=== PATIENT | male | born 1980 | race Hispanic/Latino ===

== ENCOUNTER 2016-12-01 15:28 | Emergency (ER) | payer MEDICARE, MEDICAID ==
[~2016-12-01 15:28] MED LIST: ONDA4TAB9 PO; PHN100C PO
[2016-12-01 15:37] VITALS: BP 108/74; PULSE 67; RESP 16; O2SAT 98
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
[2016-12-01] MEDS ORDERED: Trimethoprim-Sulfa 160 mg-800 mg Tablet PO ONE (15:50)
[2016-12-01] MEDS ORDERED: TdaP Vaccine 0.5 mL Inj IM ONE (15:50)
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
[2016-12-01] MEDS ORDERED: SULF1TAB7 PO (16:22)
== END 2016-12-01 16:22 ==
LOC: EDBD → SED 15:28 → MERGE 15:28 → SED 16:22
DX: S81.812A Laceration without foreign body, left lower leg, initial encounter (principal); X99.9XXA Assault by unspecified sharp object, initial encounter; Y93.89 Activity, other specified; Y92.9 Unspecified place or not applicable; Y99.8 Other external cause status; L03.116 Cellulitis of left lower limb; R50.9 Fever, unspecified; Z23 Encounter for immunization

== ENCOUNTER 2016-12-17 08:38 | Emergency (ER) | payer MEDICARE, MEDICAID ==
[~2016-12-17] VITALS: Ht 167.6 cm; Wt 76.8 kg
[~2016-12-17 08:38] MED LIST changes: +SULF1TAB7 PO
[2016-12-17 08:40] VITALS: BP 107/54; PULSE 79; RESP 16; O2SAT 98
[2016-12-17] MEDS ORDERED: SULF1TAB7 PO (09:05)
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
[2016-12-17 09:29] LABS: BASOPHILS % (AUTO) 0.7 % (0-3); EOSINOPHILS % (AUTO) 3.9 % (0-5); MONOCYTES % (AUTO) 9.5 % (4-12); Mean Corpuscular Hemoglobin 29.4 pg (27.0-35.0); Mean Corpuscular Volume 90.3 fL (81-100); NEUTROPHILS % (AUTO) 49.3 % (40-74); Platelet Count 285 bil/L (150-400)
[2016-12-17 10:14] LABS: ERYTHROCYTE SEDIMENTATION RATE 1 mm/hr (0-15)
--- NOTE | 2016-12-17 10:51 | DRSVH ---
PROCEDURE: X-RAY RIGHT FOOT COMPLETE, MINIMUM THREE VIEWS ([id number]) INDICATIONS: pain TECHNIQUE: 3 views of the foot were acquired. COMPARISON: [facility], , FOOT COMP MIN 3VW (RT), 02/19/2011, 18:45. FINDINGS: Bones: No fractures or dislocations. No suspicious bony lesions. Soft tissues: No tibiotalar joint effusion. Achilles tendon appears normal. IMPRESSION: No visualized acute fracture or dislocation. However, if clinical concern and/or pain pe rsist, short interval imaging followup in 7-10 days is recommended, as occult injury cannot be defini tively excluded. Dictated by: Arin Ayala M.D. on 12/17/2016 at 10:48 Approved by: Arin Ayala M.D. on 12/17/2016 at 10:50
[2016-12-17] MEDS ORDERED: Phenytoin 100 mg ER Capsule PO ONE (11:00)
[2016-12-17 11:18] VITALS: BP 121/53; PULSE 89; RESP 18; O2SAT 97
[2016-12-17 11:43] VITALS: BP 107/58; PULSE 76; RESP 24; O2SAT 98
== END 2016-12-17 11:57 | disposition home or self-care (01) ==
LOC: EDBD 08:38 → EDUNIT# 08:38 → SED 08:38
DX: R56.9 Unspecified convulsions (principal); R79.1 Abnormal coagulation profile; Z91.14 Patient's other noncompliance with medication regimen; J45.909 Unspecified asthma, uncomplicated; Z88.6 Allergy status to analgesic agent; Z88.8 Allergy status to other drugs, medicaments and biological substances; Z59.0 Homelessness

== ENCOUNTER 2017-01-08 21:19 | Emergency (ER) | payer MEDICARE, MEDICAID ==
[2017-01-08 21:25] VITALS: PULSE 97; RESP 22; O2SAT 100
[2017-01-08] MEDS ORDERED: HYDROmorphone 1 mg/mL Inj IVPUSH PRN (21:25)
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
[2017-01-08 21:35] VITALS: BP 120/74
--- NOTE | 2017-01-08 21:49 | DRSVH ---
PROCEDURE: X-RAY CHEST ONE VIEW, PORTABLE ([id number]) INDICATIONS: CP TECHNIQUE: One view of the chest was acquired. COMPARISON: None. FINDINGS: Surgical changes and devices: None. Lungs and pleura: No pleural effusions or pneumothorax. Lungs are clear. Mediastinum: Mediastinal contours appear normal. Heart size is normal. Bones and chest wall: No suspicious bony lesions. Overlying soft tissues appear unremarkable. IMPRESSION: No acute disease Dictated by: Kobe Yo M.D. on 01/08/2017 at 21:47 Approved by: Kobe Yo M.D. on 01/08/2017 at 21:48
[2017-01-08 21:54] LABS: BASOPHILS % (AUTO) 0.5 % (0-3); EOSINOPHILS % (AUTO) 2.1 % (0-5); MONOCYTES % (AUTO) 7.3 % (4-12); Mean Corpuscular Hemoglobin 28.4 pg (27.0-35.0); Mean Corpuscular Volume 87.4 fL (81-100); NEUTROPHILS % (AUTO) 68.2 % (40-74); Platelet Count 505 bil/L (150-400)
[2017-01-08 22:09] VITALS: BP 124/74; PULSE 101; RESP 17; O2SAT 100
[2017-01-08 22:14] LABS: TROPONIN T < 0.010 ug/L (0.0-0.011)
[2017-01-08] MEDS ORDERED: 0.9% Sodium Chloride 1,000 ML IV ONE (22:30)
[2017-01-08 23:14] VITALS: BP 128/88; PULSE 90; RESP 17; O2SAT 99
[2017-01-08] MEDS ORDERED: IBUP-1827 PO (23:31)
[2017-01-08 23:49] VITALS: BP 128/88; PULSE 90; RESP 17; O2SAT 99
--- NOTE | 2017-01-09 12:02 | DRSVH ---
PROCEDURE: CT ANGIO CHEST PULMONARY EMBOLISM ([id number]) INDICATIONS: chest pain, elevated dimer TECHNIQUE: After the administration of intravenous contrast, 2 mm thick sections acquired from the pulmonary api dwight to the posterior costophrenic angles. 3-dimensional maximum intensity projection (MIP) coronal a nd sagittal reformats were then acquired through the thorax. For radiation dose reduction, the follo wing was used: automated exposure control, adjustment of mA and/or kV according to patient size. COMPARISON: [facility], CR, XR CHEST 1VW (PORTABLE), 01/08/2017, 21:14. FINDINGS: Image quality: Moderate, motion degrades images in the lower lung sage. Pulmonary arteries: Pulmonary arteries are normal in size, and demonstrate no intraluminal filling d efects to suggest central pulmonary embolism. Lungs and pleura: Lungs show patchy density in the superior segment of the left lower lobe and right lower lobe in a somewhat nodular appearance and also in the left lower lobe more inferolaterally the re is some airspace disease. No pleural effusions or pneumothorax. Central and peripheral airways ar e patent. Mediastinum: Heart size is normal, without pericardial effusion. No mediastinal or hilar adenopathy . Thoracic aorta is normal in caliber and enhancement. Esophagus is normal in caliber, without hiat al hernia. Bones and chest wall: No suspicious bony lesions. Ribs and thoracic spine appear intact throughout. Thyroid gland is within normal limits. No axillary or supraclavicular adenopathy. Abdomen: Visualized upper abdominal solid organs appear normal in the early arterial phase of enhanc ement. IMPRESSION: 1. No evidence for pulmonary embolus. 2. Bilateral superior segment of lower lobes and in addition left lower lung field densities probably infiltrates versus less likely mass lesions. Followup CT scan in 3 months is suggested for considera tion is pneumonia is not consistent with the patient's complaint. Dictated by: Jose Figueredo M.D. on 01/09/2017 at 11:55 Approved by: Jose Figueredo M.D. on 01/09/2017 at 12:00
== END 2017-01-09 00:03 | disposition home or self-care (01) ==
LOC: SED 21:19
DX: R07.89 Other chest pain (principal); F15.10 Other stimulant abuse, uncomplicated
CPT/HCPCS: 36415; 71010; 71275; 80053; 84484; 85025; 85378; 93005; 96361; 96374; 99285; J1885; J7030; Q9967

== ENCOUNTER 2017-04-20 14:24 | Emergency (ER) | payer MEDICARE, MEDICAID ==
[~2017-04-20] VITALS: Ht 157.5 cm; Wt 84.1 kg
[~2017-04-20 14:24] MED LIST changes: +IBUP-1827 PO
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
[2017-04-20 14:30] VITALS: BP 144/100; PULSE 82; RESP 22; O2SAT 100
[2017-04-20 14:35] VITALS: BP 144/100; PULSE 82; RESP 19; O2SAT 98
[2017-04-20 14:40] LABS: BASOPHILS % (AUTO) 0.5 % (0-3); EOSINOPHILS % (AUTO) 2.3 % (0-5); MONOCYTES % (AUTO) 7.9 % (4-12); Mean Corpuscular Hemoglobin 28.4 pg (27.0-35.0); Mean Corpuscular Volume 86.1 fL (81-100); NEUTROPHILS % (AUTO) 62.9 % (40-74); Platelet Count 283 bil/L (150-400)
[2017-04-20] MEDS ORDERED: 0.9% Sodium Chloride 1,000 ML IV ONE (14:40)
[2017-04-20] MEDS ORDERED: Haloperidol 5 mg/mL Inj IVPUSH ONE (14:40)
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
[2017-04-20 16:08] VITALS: BP 119/56; PULSE 62; RESP 14; O2SAT 98
== END 2017-04-20 16:08 ==
LOC: SED 14:24
DX: F15.21 Other stimulant dependence, in remission (principal); G40.909 Epilepsy, unspecified, not intractable, without status epilepticus; S89.91XA Unspecified injury of right lower leg, initial encounter; V03.10XA Pedestrian on foot injured in collision with car, pick-up truck or van in traffic accident, initial encounter; Y92.410 Unspecified street and highway as the place of occurrence of the external cause; Y93.89 Activity, other specified; Y99.8 Other external cause status; F20.9 Schizophrenia, unspecified; F31.9 Bipolar disorder, unspecified; F44.81 Dissociative identity disorder; F43.10 Post-traumatic stress disorder, unspecified; F41.9 Anxiety disorder, unspecified; G47.00 Insomnia, unspecified; Z02.89 Encounter for other administrative examinations; Z59.0 Homelessness; Z87.820 Personal history of traumatic brain injury; Z88.6 Allergy status to analgesic agent; Z88.8 Allergy status to other drugs, medicaments and biological substances
CPT/HCPCS: 36415; 73590; 80053; 80185; 85025; 96361; 96374; 99285; J1630; J7030